=== PATIENT | female | born 2000 | race Caucasian/White ===

== ENCOUNTER 2022-12-19 09:56 | Emergency (ER) | payer MEDICAID, SELFPAY ==
[2022-12-19] VITALS (15 sets, daily range): BP systolic 107–133; BP diastolic 67–90; PULSE 52–98; RESP 12–25; TEMP 36.9; O2SAT 97–100; BMI 19.9
--- NOTE | 2022-12-19 10:08 | ED_ITS ---
HPI - Dizziness General Chief Complaint: Dizziness Stated Complaint: dizziness Time Seen by Provider: 12/19/22 10:08 History of Present Illness HPI Narrative: Patient presents to emergency department complaining of dizziness. Patient states she was at work and got up from a seated position and developed dizziness felt like she was having tunnel vision and right-sided tinnitus. She states she sat down and things settled down and she went home. She states she is not dizzy currently. She denies any headache. She denies any chest pain, shortness of breath. She denies any paresthesias, or weakness. She denies any speech difficulties. She denies any nausea, vomiting, diarrhea, constipation, abdominal pain. She denies any flank pain, hematuria, dysuria. The patient has no previous history of syncope. She is generally healthy. Last menstrual period 1 weeks ago.She denies any fever, chills, cough, sore throat or upper respiratory infection symptoms. She denies any ear pain. Related Data Home Medications Medication Instructions Recorded Confirmed No Known Home Medications 12/19/22 12/19/22 Allergies Allergy/AdvReac Type Severity Reaction Status Date / Time No Known Drug Allergies Allergy Verified 12/19/22 10:02 Review of Systems ROS Status of ROS 10 or more systems reviewed and unremarkable except as noted in history and below Exam Narrative Exam Narrative: Nurses notes and vital signs reviewed and patient is not hypoxic. General: Nontoxic, Well-appearing and in no apparent distress. Skin: Warm, dry, no pallor noted. No Rash Head: Normocephalic, atraumatic. Neck: Supple, non-tender. Eye: Pupils are equal, round and EOMI. No scleral icterus. Ears, Nose, Mouth, and Throat: TM clear, no posterior oropharynx erythema or nasal mucosal hypertrophy, uvula is mid-line Oral mucosa is moist Cardiovascular: Regular Rate and Rhythm without murmur, gallop or rub. Respiratory: No accessory muscle use or respiratory distress. Lungs are clear to auscultation, no wheezing, rales or rhonchi Chest Wall: no tenderness Back: No midline thoracic or lumbar vertebral tenderness. No CVA tenderness Musculoskeletal: normal ROM, no calf or popliteal tenderness, no lower ext remity edema/swelling GI: Abdomen is soft, non-distended. Normal bowel sounds. No masses appreciated. No tenderness to palpation. No rebound, guarding, or rigidity noted. Neurological: A&O x4. No cranial nerve dysfunction observed. No truncal ataxia. Moves all extremities. Sensation intact. Psychiatric: Cooperative and interactive. Normal mood and affect. Constitutional Vital Signs, click to edit/add: Last Vital Signs Temp 98.4 F 12/19/22 10:03 Pulse 52 L 12/19/22 12:01 Resp 15 12/19/22 12:01 BP 107/67 12/19/22 12:01 Pulse Ox 100 12/19/22 12:01 O2 Del Method Room Air 12/19/22 10:03 Course Vital Signs Vital signs: Vital Signs Temperature 98.4 F 12/19/22 10:03 Pulse Rate 82 12/19/22 10:03 Respiratory Rate 17 12/19/22 10:03 Blood Pressure 133/81 12/19/22 10:03 Pulse Oximetry 100 12/19/22 10:03 Oxygen Delivery Method Room Air 12/19/22 10:03 Temperature 98.4 F 12/19/22 10:03 Pulse Rate 52 L 12/19/22 12:01 Respiratory Rate 15 12/19/22 12:01 Blood Pressure 107/67 12/19/22 12:01 Pulse Oximetry 100 12/19/22 12:01 Oxygen Delivery Method Room Air 12/19/22 10:03 MDM - Dizziness MDM Narrative Medical decision making narrative: EKG is unremarkable. Patient had blood work studies done which are unremarkable. test is negative. Patient was given 1 L normal saline. She stated she felt better and was requesting discharge. All results were discussed with patient. Work note was provided for the patient. She is stable for outpatient follow-up and treatment. At this time the patient is without objective evidence of an acute process requiring hospitalization or inpatient management. The patient has remained hemodynamically stable. No additional indication for emergent studies at this time. I answered all questions. Discussed discharge instructions including standard anticipatory guidance and what should prompt a return to the emergency department, including if they get worse are not getting better or develops any new or concerning symptoms. I've given them specific time frame in which to follow-up, and who to follow-up with. The patient demonstrates understanding. Patient is nontoxic and stable for discharge with outpatient follow-up. This note was created with the assistance of a speech recognition program. Although the intention is to generate documents that actually reflects the content of the visit, no guarantees can be provided that every mistake has been identified and corrected by editing. Lab Data Attestation: I reviewed the patient's lab results. Labs: Lab Results 12/19/22 12/19/22 Range/Units 11:06 11:15 WBC 7.4 (4.0-11.0) 10^3/uL RBC 4.44 (4.20-5.40) 10^6/uL Hgb 13.7 (12.0-16.0) g/dL Hct 42.0 (36.0-48.0) % MCV 94.6 (81.0-99.0) fL MCH 30.9 (26.7-34.0) pg MCHC 32.6 (29.9-35.2) g/dL RDW 13.2 (11.0-15.0) % Plt Count 211 (150-450) 10^3/uL MPV 12.3 (9.5-13.5) fL Neut % (Auto) 59.5 (43.0-75.0) % Lymph % (Auto) 17.7 L (20.5-60.0) % [place] % (Auto) 4.7 (1.7-12.0) % Eos % (Auto) 16.4 H (0.9-7.0) % Baso % (Auto) 1.4 (0.2-2.0) % Neut # (Auto) 4.4 (1.4-6.5) 10^3/uL Lymph # (Auto) 1.3 (1.2-3.8) 10^3/uL [place] # (Auto) 0.4 (0.3-0.8) 10^3/uL Eos # (Auto) 1.2 H (0.0-0.7) 10^3/uL Baso # (Auto) 0.1 (0.0-0.1) 10^3/uL Abs Immat Gran (auto) 0.02 (0.00-0.03) 10^3/uL Imm/Tot Granulo (auto) 0.3 (0.0-0.5) % Sodium 137 (136-145) mmol/L Potassium 3.7 (3.5-5.1) mmol/L Chloride 103 (98-107) mmol/L Carbon Dioxide 26.3 (21.0-32.0) mmol/L Anion Gap 11.4 BUN 9.0 (7.0-18.0) mg/dL Creatinine 0.73 (0.55-1.02) mg/dL Est GFR ( Amer) >60 (>=60) Est GFR (Non-Af Amer) >60 (>=60) BUN/Creatinine Ratio 12.3 Glucose 85 (74-106) mg/dL Calcium 9.6 (8.5-10.1) mg/dL Magnesium 2.1 (1.8-2.4) mg/dL Total Bilirubin 0.4 (0.2-1.0) mg/dL AST 11 L (15-37) U/L ALT 18 (14-59) U/L Alkaline Phosphatase 57 (46-116) U/L Total Protein 8.3 H (6.4-8.2) g/dL Albumin 4.0 (3.4-5.0) g/dL Globulin 4.3 g/dL Albumin/Globulin Ratio 0.9 Urine Color Lt. yellow (YELLOW) Urine Clarity Clear (CLEAR) Urine pH 7.5 (5.0-9.0) Ur Specific [place] 1.020 (1.005-1.025) Urine Protein Negative (NEG/TRACE) mg/dL Urine Glucose (UA) Negative (NEGATIVE) mg/dL Urine Ketones Negative (NEGATIVE) mg/dL Urine Occult Blood Negative (NEGATIVE) Urine Nitrite Negative (NEGATIVE) Urine Bilirubin Negative (NEGATIVE) Urine Urobilinogen 0.2 (0.2-1.0) EU/dL Ur Leukocyte Esterase Negative (NEGATIVE) Urine HCG, Qual Negative (NEGATIVE) ECG Data Attestation: I personally reviewed and interpreted this ECG as follows: Interpretation: Sinus rhythm 72 bpm. There are no acute ischemic changes. Discharge Plan Discharge Chief Complaint: Dizziness Clinical Impression: Dizziness Patient Disposition: Home, Self-Care Time of Disposition Decision: 13:37 Condition: Good Mode of Transportation: Private Vehicle Prescriptions / Home Meds: No Action No Known Home Medications Instructions: Dizziness (ED) Stand Alone Forms: Portal Instructions Referrals: HANNAH VELAZQUEZ APRN [Physician] - 1 week
--- NOTE | 2022-12-19 10:55 | ECG_ITS ---
[facility] Test Date: 2022-12-19 Pat Name: BARBARA PEÑA Department: Room: - Gender: Female Personnel Representative: : 2000 Requested By: [id number] Order Number: [id number] Reading MD: GARHT DOMINGO Measurements Intervals [place] Rate: 72 P: 61 UT: 136 QRS: 83 QRSD: 84 T: 55 QT: 368 QTc: 392 Interpretive Statements 1100 Sinus rhythm 1470 with occasional supraventricular premature complexes 9140 abnormal rhythm ECG No previous ECG available for comparison Electronically Signed On 12-20-2022 7:02:55 EDT by GARTH DOMINGO
[2022-12-19] MEDS: 0.9 % SODIUM CHLORIDE 1,000 ML 999 ML IV (11:19)
[2022-12-19 11:54] LABS: Basophils Absolute Auto 0.1 10^3/uL (0.0-0.1); Basophils Percent Auto 1.4 % (0.2-2.0); Eosinophils Absolute Auto 1.2 10^3/uL (0.0-0.7); Eosinophils Percent Auto 16.4 % (0.9-7.0); Hemoglobin 13.7 g/dL (12.0-16.0); Immature Granulocytes Abs Auto 0.02 10^3/uL (0.00-0.03); Immature Granulocytes Pct Auto 0.3 % (0.0-0.5); Lymphocytes Absolute Auto 1.3 10^3/uL (1.2-3.8); Lymphocytes Percent Auto 17.7 % (20.5-60.0); Mean Corpuscular HGB Conc 32.6 g/dL (29.9-35.2); Mean Corpuscular Hemoglobin 30.9 pg (26.7-34.0); Mean Corpuscular Volume 94.6 fL (81.0-99.0); Mean Platelet Volume 12.3 fL (9.5-13.5); Monocytes Absolute Auto 0.4 10^3/uL (0.3-0.8); Monocytes Percent Auto 4.7 % (1.7-12.0); Neutrophils Absolute Auto 4.4 10^3/uL (1.4-6.5); Neutrophils Percent Auto 59.5 % (43.0-75.0); Platelet Count 211 10^3/uL (150-450); Red Blood Count 4.44 10^6/uL (4.20-5.40); Red Cell Distribution Width 13.2 % (11.0-15.0); White Blood Count 7.4 10^3/uL (4.0-11.0)
[2022-12-19 11:55] LABS: Bilirubin Urine NEGATIVE (NEGATIVE); Blood Urine NEGATIVE (NEGATIVE); Clarity Urine CLEAR (CLEAR); Color Urine LT. YELLOW (YELLOW); Glucose Urine UA NEGATIVE (NEGATIVE); Ketones Urine NEGATIVE (NEGATIVE); Leukocyte Esterase Urine NEGATIVE (NEGATIVE); Nitrite Urine NEGATIVE (NEGATIVE); Protein Urine NEGATIVE (NEG/TRACE); Urobilinogen Urine 0.2 EU/dL (0.2-1.0); pH Urine 7.5 (5.0-9.0)
[2022-12-19 12:45] LABS: HCG Qualitative Urine* NEGATIVE (NEGATIVE)
[2022-12-19 12:47] LABS: Alanine Aminotransferase 18 U/L (14-59); Albumin Globulin Ratio 0.9; Alkaline Phosphatase 57 U/L (46-116); Anion Gap 11.4; Aspartate Amino Transferase 11 U/L (15-37); BUN Creatinine Ratio 12.3; Bilirubin Total 0.4 mg/dL (0.2-1.0); Calcium 9.6 mg/dL (8.5-10.1); Carbon Dioxide 26.3 mmol/L (21.0-32.0); Chloride 103 mmol/L (98-107); Estimated GFR (African America >60 (>=60); Estimated GFR (Non-African Ame >60 (>=60); Globulin 4.3 g/dL; Glucose 85 mg/dL (74-106); Magnesium 2.1 mg/dL (1.8-2.4); Potassium 3.7 mmol/L (3.5-5.1); Sodium 137 mmol/L (136-145); Total Protein 8.3 g/dL (6.4-8.2)
== END 2022-12-19 14:00 | disposition home or self-care (01) ==
PROVIDERS: Emergency Provider Emergency Medicine
DX: R42 Dizziness and giddiness (principal)
CPT/HCPCS: 36415; 80053; 81003; 83735; 84703; 85025; 93005; 96360; 99285

== ENCOUNTER 2023-05-21 10:20 | Emergency (ER) | payer MEDICAID, SELFPAY ==
[2023-05-21 10:48] VITALS: BP 102/60; PULSE 98; RESP 20; TEMP 36.6; O2SAT 100
--- NOTE | 2023-05-21 10:58 | XR_ITS ---
The [address] [address] Patient Name: BARBARA PEÑA MRN: [id number] date: 2000 Sex: F Assigned Patient Location: ER Current Patient Location: ER Accession/Order Number: [id number] Exam Date: 05/21/2023 11:10 Report Date: 05/21/2023 11:44 At the request of: MALCOLM KRAUSE Procedure: XR chest 1V EXAM: Chest x-ray HISTORY: . cough . COMPARISON: None. TECHNIQUE: Single view of the chest FINDINGS: Heart and vascularity are unremarkable. Lungs are free of focal infiltrates. Grossly no bony abnormality is appreciated. XR/XR chest 1V IMPRESSION: No acute heart or lung disease identified. Electronically authenticated by: DAKSHA BOWIE Date: 05/21/2023 11:44
--- NOTE | 2023-05-21 11:12 | ED.URI1 ---
HPI - URI/Sore Throat General Chief Complaint: Upper Respiratory Infection Stated Complaint: GENERAL WEAKNESS Time Seen by Provider: 05/21/23 10:25 Source: patient Limitations: no limitations History of Present Illness HPI Narrative: 22-year-old female presents for 3-week history of cough. She has been feeling weak. She was seen at an urgent care center and they put her on a variety of medications including Zithromax. She took these and does not feel much better. She vapes. She has no history of asthma or diabetes. Related Data Home Medications Medication Instructions Recorded Confirmed No Known Home Medications 12/19/22 12/19/22 Previous Rx's Medication Instructions Recorded benzonatate 100 mg capsule 100 mg PO TID PRN cough #20 caps 05/21/23 doxycycline hyclate 100 mg capsule 100 mg PO BID 10 days #20 caps 05/21/23 Allergies Allergy/AdvReac Type Severity Reaction Status Date / Time No Known Drug Allergies Allergy Verified 12/19/22 10:02 Review of Systems ROS Narrative A ten point review of systems is negative except as noted above. PFSH PFSH Social History Smoking status: Light tobacco smoker Exam Narrative Exam Narrative: Nurses note and vital signs reviewed and patient is not hypoxic. General: The patient appears well and in no apparent distress. Patient is resting comfortably on cart. Skin: Warm, dry, no pallor noted. There is no rash noted. Head: Normocephalic, atraumatic Eye: Normal conjunctiva, no drainage, EOMI. PERRL Ears, Nose, Mouth, and Throat: oral mucosa is moist. Nares patent. Mouth without vesicles. Ear canals patent. Tm's without Erythema Cardiovascular: Regular Rate and Rhythm Respiratory: Patient is in no distress, no accessory muscle use, lungs are clear to auscultation, no wheezing, rales or rhonchi Back: non-tender GI: Soft and nontender Musculoskeletal: The patient has no evidence of calf tenderness, no pitting edema, symmetrical pulses noted bilaterally Neurological: A&O, normal speech Psychiatric: Cooperative Constitutional Vital Signs, click to edit/add: Last Vital Signs Temp 97.9 F 05/21/23 10:48 Pulse 98 H 05/21/23 10:48 Resp 20 05/21/23 10:48 BP 102/60 05/21/23 10:48 Pulse Ox 100 05/21/23 10:48 O2 Del Method Room Air 05/21/23 10:48 Course Vital Signs Vital signs: Vital Signs Temperature 97.9 F 05/21/23 10:48 Pulse Rate 98 H 05/21/23 10:48 Respiratory Rate 20 05/21/23 10:48 Blood Pressure 102/60 05/21/23 10:48 Pulse Oximetry 100 05/21/23 10:48 Oxygen Delivery Method Room Air 05/21/23 10:48 Temperature 97.9 F 05/21/23 10:48 Pulse Rate 98 H 05/21/23 10:48 Respiratory Rate 20 05/21/23 10:48 Blood Pressure 102/60 05/21/23 10:48 Pulse Oximetry 100 05/21/23 10:48 Oxygen Delivery Method Room Air 05/21/23 10:48 MDM - URI/Sore Throat MDM Narrative Medical decision making narrative: Her workup is negative. She will be prescribed doxycycline and Tessalon. Treatment diagnosis and follow-up were discussed with the patient Differential Diagnosis Differential diagnosis: Likely upper respiratory infection, bronchitis, influenza and other (COVID, pneumonia) Lab Data Attestation: I reviewed the patient's lab results. Labs: Lab Results 05/21/23 05/21/23 Range/Units 11:03 11:10 WBC 14.6 H (4.0-11.0) 10^3/uL RBC 4.81 (4.20-5.40) 10^6/uL Hgb 15.1 (12.0-16.0) g/dL Hct 45.3 (36.0-48.0) % MCV 94.2 (81.0-99.0) fL MCH 31.4 (26.7-34.0) pg MCHC 33.3 (29.9-35.2) g/dL RDW 12.3 (11.0-15.0) % Plt Count 198 (150-450) 10^3/uL MPV 11.0 (9.5-13.5) fL Neut % (Auto) 78.9 H (43.0-75.0) % Lymph % (Auto) 12.3 L (20.5-60.0) % [place] % (Auto) 4.6 (1.7-12.0) % Eos % (Auto) 3.2 (0.9-7.0) % Baso % (Auto) 0.5 (0.2-2.0) % Neut # (Auto) 11.5 H (1.4-6.5) 10^3/uL Lymph # (Auto) 1.8 (1.2-3.8) 10^3/uL [place] # (Auto) 0.7 (0.3-0.8) 10^3/uL Eos # (Auto) 0.5 (0.0-0.7) 10^3/uL Baso # (Auto) 0.1 (0.0-0.1) 10^3/uL Abs Immat Gran (auto) 0.08 H (0.00-0.03) 10^3/uL Imm/Tot Granulo (auto) 0.5 (0.0-0.5) % Sodium 137 (136-145) mmol/L Potassium 3.8 (3.5-5.1) mmol/L Chloride 102 (98-107) mmol/L Carbon Dioxide 28.0 (21.0-32.0) mmol/L Anion Gap 10.8 BUN 10.0 (7.0-18.0) mg/dL Creatinine 0.73 (0.55-1.02) mg/dL Est GFR ( Amer) >60 (>=60) Est GFR (Non-Af Amer) >60 (>=60) BUN/Creatinine Ratio 13.7 Glucose 83 (74-106) mg/dL Calcium 9.5 (8.5-10.1) mg/dL Influenza Type A Ag Negative Influenza Type B Ag Negative SARS-CoV-2 Ag (CV2AG) Negative (NEGATIVE) Imaging Data Chest x-ray: Radiologist's impression: ITS Impressions Chest X-Ray 05/21/23 10:58 IMPRESSION: No acute heart or lung disease identified. Electronically authenticated by: DAKSHA BOWIE Date: 05/21/2023 11:44 Discharge Plan Discharge Chief Complaint: Upper Respiratory Infection Clinical Impression: Upper respiratory infection Patient Disposition: Home, Self-Care Time of Disposition Decision: 12:17 Condition: Good Mode of Transportation: Private Vehicle Prescriptions / Home Meds: New doxycycline hyclate 100 mg capsule 100 mg PO BID 10 Days Qty: 20 0RF benzonatate 100 mg capsule 100 mg PO TID PRN (Reason: cough) Qty: 20 0RF No Action No Known Home Medications Instructions: Upper Respiratory Infection (ED) Stand Alone Forms: Portal Instructions Referrals: Physician,Non-Staff, MD [Primary Care Provider] - 1 week
[2023-05-21 11:15] LABS: Basophils Absolute Auto 0.1 10^3/uL (0.0-0.1); Basophils Percent Auto 0.5 % (0.2-2.0); Eosinophils Absolute Auto 0.5 10^3/uL (0.0-0.7); Eosinophils Percent Auto 3.2 % (0.9-7.0); Hematocrit 45.3 % (36.0-48.0); Hemoglobin 15.1 g/dL (12.0-16.0); Immature Granulocytes Abs Auto 0.08 10^3/uL (0.00-0.03); Immature Granulocytes Pct Auto 0.5 % (0.0-0.5); Lymphocytes Absolute Auto 1.8 10^3/uL (1.2-3.8); Lymphocytes Percent Auto 12.3 % (20.5-60.0); Mean Corpuscular HGB Conc 33.3 g/dL (29.9-35.2); Mean Corpuscular Hemoglobin 31.4 pg (26.7-34.0); Mean Corpuscular Volume 94.2 fL (81.0-99.0); Monocytes Absolute Auto 0.7 10^3/uL (0.3-0.8); Monocytes Percent Auto 4.6 % (1.7-12.0); Neutrophils Absolute Auto 11.5 10^3/uL (1.4-6.5); Neutrophils Percent Auto 78.9 % (43.0-75.0); Platelet Count 198 10^3/uL (150-450); Red Blood Count 4.81 10^6/uL (4.20-5.40); Red Cell Distribution Width 12.3 % (11.0-15.0); White Blood Count 14.6 10^3/uL (4.0-11.0)
[2023-05-21 11:27] LABS: Anion Gap 10.8; BUN Creatinine Ratio 13.7; Calcium 9.5 mg/dL (8.5-10.1); Chloride 102 mmol/L (98-107); Estimated GFR (African America >60 (>=60); Estimated GFR (Non-African Ame >60 (>=60); Glucose 83 mg/dL (74-106); Potassium 3.8 mmol/L (3.5-5.1); Sodium 137 mmol/L (136-145)
[2023-05-21 11:55] LABS: SARS-CoV-2 Ag NEGATIVE (NEGATIVE)
[2023-05-21 11:56] LABS: Influenza Virus A Antigen Negative; Influenza Virus B Antigen Negative; Internal Control Within Normal Limits
== END 2023-05-21 12:30 | disposition home or self-care (01) ==
PROVIDERS: Emergency Provider Emergency Medicine
DX: J06.9 Acute upper respiratory infection, unspecified (principal); F17.290 Nicotine dependence, other tobacco product, uncomplicated; Z20.822 Contact with and (suspected) exposure to COVID-19
CPT/HCPCS: 36415; 71045; 80048; 85025; 87804; 87811; 99284

== ENCOUNTER 2024-04-27 20:19 | Outpatient (REF) | payer OTHER, MEDICAID, SELFPAY ==
[2024-04-30 11:08] LABS: Age Gdln ACOG Testing Note (.); IGP, rfx Aptima HPV ASCU Note (.)
== END 2024-04-27 20:20 | disposition home or self-care (01) ==
LOC: LAB 20:19
PROVIDERS: Visit Provider Physician Assistant
DX: Z01.419 Encounter for gynecological examination (general) (routine) without abnormal findings (principal)
CPT/HCPCS: 88175